=== PATIENT | male | born 1995 | race Caucasian/White ===

== ENCOUNTER 2017-07-31 10:27 | Emergency (ER) | payer BC ==
[~2017-07-31] VITALS: Ht 170.2 cm; Wt 65.5 kg
[2017-07-31 10:33] VITALS: TEMP 36.6; Ht 170.2 cm; Wt 65.5 kg
[2017-07-31 10:43] VITALS: O2SAT 99
[2017-07-31] MEDS ORDERED: METHYLPREDNISOLONE 125 MG VIAL IV STA (10:49)
[2017-07-31] MEDS ORDERED: ALBUTEROL 0.083% NEBU SOLN 3 ML VIAL INH STA (10:49)
[2017-07-31] MEDS ORDERED: VNTHFA/IN INH (10:55)
[2017-07-31] MEDS ORDERED: FLUT0.15 NAE (10:55)
[2017-07-31] MEDS ORDERED: FLUT1INH INH (10:55)
[2017-07-31 11:14] LABS: EOS % 10.5 %; EOS ABS # 0.42 K/uL (0-0.5); HEMATOCRIT 45.8 % (42-52); HEMOGLOBIN 16.2 g/dL (14.0-18.0); LYMPH ABS # 1.44 K/uL (1.2-3.4); MEAN CELL VOLUME 91.1 fL (80-100); MEAN CORPUSCULAR HEMOGLOBIN 32.2 pg (25-34); MEAN CORPUSCULAR HGB CONC 35.4 g/dl (32-36); MONO ABS # 0.36 K/uL (0.11-0.59); NEUT % 44.5 %; NEUT ABS # 1.78 K/uL (1.4-6.5); PLATELET COUNT 194 K/uL (130-400); RED CELL DISTRIBUTION WIDTH CV 11.9 % (11.5-14.5); RED CELL DISTRIBUTION WIDTH SD 39.9 fL (36.4-46.3)
[2017-07-31 11:29] LABS: CREATININE 1.22 mg/dl (0.60-1.40); POTASSIUM 3.8 mmol/L (3.5-5.1)
--- NOTE | 2017-07-31 11:53 | DIAGNOSTIC IMAGING REPORT ---
CHEST ONE VIEW PORTABLE CLINICAL HISTORY: Shortness of breath. COMPARISON STUDY: No previous studies for comparison. FINDINGS: Lung volumes are normal. No consolidation is identified. There is no pneumothorax or pleural effusion. Cardiomediastinal silhouette is normal. IMPRESSION: No acute cardiopulmonary findings. Electronically signed by: Elian Alfred M.D. 07/31/2017 11:52 AM Dictated Date/Time: 07/31/2017 11:52 AM
[2017-07-31] MEDS ORDERED: ALBUT/IPRATROP 3MG/0.5MG NEB 3 ML VIAL INH STA (13:00)
[2017-07-31] MEDS ORDERED: PRED50TA PO (13:09)
[2017-07-31] MEDS ORDERED: AZIT-57 PO (13:09)
[2017-07-31] MEDS ORDERED: AZITHROMYCIN 250 MG TAB PO STA (13:10)
[2017-07-31 13:32] VITALS: BP 109/72; PULSE 102; O2SAT 98
--- NOTE | 2017-07-31 13:58 | EMERGENCY ROOM VISIT NOTE ---
History Report prepared by Sudheer: Stefan Waterman Under the Supervision of: Dr. Saw Mcdowell D.O. First contact with patient: 10:38 Chief Complaint: RESPIRATORY PROBLEMS Stated Complaint: ASTHMA SEVERAL DAYS History of Present Illness The patient is a 22 year old male who presents to the Emergency Room with complaints of worsening respiratory difficulties for the past week. The patient states that he has a history of asthma, and he had a recent change in medications from volare to AirDuo. He states that since this change he has been having issues. The patient states that he has been taking 4 puffs of albuterol daily, and he has already taken two today, and he states that he does not have a nebulizer. The patient states that he has been having a cough that is occasionally productive, and he has an occasional runny nose. He additionally states that he is having some chest heaviness which is typical with his asthma exacerbations. Patient denies swelling of calves, recent trips, history of immobilization or recent surgeries, headache, change in vision, fevers, nausea, vomiting, diarrhea, pain with urination, and melena. The patient denies any oral steroid usage. Source of History: patient Onset: a week ago Position: other (global) Quality: other (respiratory difficulties) Timing: worsening Associated Symptoms: + cough Note: Associated symptoms: Chest heaviness. Review of Systems See HPI for pertinent positives & negatives. A total of 10 systems reviewed and were otherwise negative. Past Medical & Surgical Medical Problems: (1) Asthma Social History Smoking Status: Never Smoker Marital Status: single Housing Status: lives with roommate Occupation Status: [employer] student Current/Historical Medications Scheduled Azithromycin (Azithromycin), 250 MG PO DAILY Fluticasone Propionate (Nasal) (Flonase Allergy Relief), 1 SPRAY LISSY DAILY Fluticasone-Salmeterol (Airduo Respiclick 232/14 232-14 Mcg/Act), 1 PUFF INH AMPM Prednisone (Prednisone), 50 MG PO DAILY Scheduled PRN Albuterol Hfa (Ventolin Hfa), 2 PUFFS INH UD PRN for SOB/Wheezing Allergies Coded Allergies: Nut Tree (Unverified Allergy, Severe, ANAPHYLAXIS, 07/31/17) Peanut (Unverified Allergy, Severe, ANAPHYLAXIS, 07/31/17) Kiwi (Unverified Allergy, Unknown, UNKNOWN, 07/31/17) Latex1 -Allergic Contact Dermititis (Unverified Allergy, Unknown, UNKNOWN , 07/31/17) Soren (Unverified Allergy, Unknown, UNKNOWN, 07/31/17) Physical Exam Vital Signs Date Time Temp Pulse Resp B/P (MAP) Pulse Ox O2 Delivery O2 Flow Rate FiO2 07/31/17 13:32 102 20 109/72 98 Room Air 07/31/17 12:45 97 18 123/76 100 Room Air 07/31/17 11:43 118 18 118/68 100 Nebulizer 07/31/17 10:55 89 16 132/82 96 Room Air 07/31/17 10:45 91 07/31/17 10:43 99 Room Air 07/31/17 10:43 99 Room Air 07/31/17 10:33 36.6 88 24 99 Room Air Physical Exam GENERAL: Sitting up in bed, talking in full sentences, mild distress, non-toxic. EYE EXAM: normal conjunctiva. OROPHARYNX: no exudate, no erythema, lips, buccal mucosa, and tongue normal and mucous membranes are moist NECK: supple, no nuchal rigidity, no adenopathy, non-tender LUNGS: Diffuse expiratory wheezing bilaterally. Normal chest wall mechanics HEART: no murmurs, S1 normal and S2 normal ABDOMEN: abdomen soft, non-tender, normo-active bowel sounds, no masses, no rebound or guarding. BACK: Back is symmetrical on inspection and there is no deformity, no midline tenderness, no CVA tenderness. SKIN: no rashes and no bruising UPPER EXTREMITIES: upper extremities are grossly normal. LOWER EXTREMITIES: Calves are equal bilaterally. No pitting edema. NEURO EXAM: Normal sensorium, cranial nerves II-XII grossly intact, normal speech, no gross weakness of arms, no gross weakness of legs. Gross sensation intact. Medical Decision & Procedures ER Provider Diagnostic Interpretation: Radiology results as stated below per my review and the radiologist's interpretation: CHEST ONE VIEW PORTABLE CLINICAL HISTORY: Shortness of breath. COMPARISON STUDY: No previous studies for comparison. FINDINGS: Lung volumes are normal. No consolidation is identified. There is no pneumothorax or pleural effusion. Cardiomediastinal silhouette is normal. IMPRESSION: No acute cardiopulmonary findings. Electronically signed by: Elian Alfred M.D. 07/31/2017 11:52 AM Dictated Date/Time: 07/31/2017 11:52 AM Laboratory Results 07/31/17 11:00 Red Blood Count 5.03, Mean Corpuscular Volume 91.1, Mean Corpuscular Hemoglobin 32.2, Mean Corpuscular Hemoglobin Concent 35.4, Mean Platelet Volume 11.0, Neutrophils (%) (Auto) 44.5, Lymphocytes (%) (Auto) 36.0, Monocytes (%) (Auto) 9.0, Eosinophils (%) (Auto) 10.5, Basophils (%) (Auto) 0.0, Neutrophils # (Auto ) 1.78, Lymphocytes # (Auto) 1.44, Monocytes # (Auto) 0.36, Eosinophils # (Auto ) 0.42, Basophils # (Auto) 0.00 07/31/17 11:00 Test 07/31/17 11:00 White Blood Count 4.00 K/uL (4.8-10.8) Red Blood Count 5.03 M/uL (4.7-6.1) Hemoglobin 16.2 g/dL (14.0-18.0) Hematocrit 45.8 % (42-52) Mean Corpuscular Volume 91.1 fL (80-100) Mean Corpuscular Hemoglobin 32.2 pg (25-34) Mean Corpuscular Hemoglobin Concent 35.4 g/dl (32-36) Platelet Count 194 K/uL (130-400) Mean Platelet Volume 11.0 fL (7.4-10.4) Neutrophils (%) (Auto) 44.5 % Lymphocytes (%) (Auto) 36.0 % Monocytes (%) (Auto) 9.0 % Eosinophils (%) (Auto) 10.5 % Basophils (%) (Auto) 0.0 % Neutrophils # (Auto) 1.78 K/uL (1.4-6.5) Lymphocytes # (Auto) 1.44 K/uL (1.2-3.4) Monocytes # (Auto) 0.36 K/uL (0.11-0.59) Eosinophils # (Auto) 0.42 K/uL (0-0.5) Basophils # (Auto) 0.00 K/uL (0-0.2) RDW Standard Deviation 39.9 fL (36.4-46.3) RDW Coefficient of Variation 11.9 % (11.5-14.5) Immature Granulocyte % (Auto) 0.0 % Immature Granulocyte # (Auto) 0.00 K/uL (0.00-0.02) Anion Gap 8.0 mmol/L (3-11) Est Creatinine Clear Calc Drug Dose 88.7 ml/min Estimated GFR () 97.6 Estimated GFR (Non- 84.2 BUN/Creatinine Ratio 10.9 (10-20) Calcium Level 10.0 mg/dl (8.5-10.1) Laboratory results per my review. Medications Administered Medications (Trade) Dose Ordered Sig/Jass Route Start Time Stop Time Status Last Admin Dose Admin Albuterol Sulfate (Ventolin 0.083% 2.5MG/3ML Neb) 5 mg NOW STAT INH 07/31/17 10:49 07/31/17 10:52 DC 07/31/17 11:18 5 MG Methylprednisolone Sodium Succinate (Solu-Medrol IV) 125 mg NOW STAT IV 07/31/17 10:49 07/31/17 10:52 DC 07/31/17 11:03 125 MG Albuterol/ Ipratropium (Duoneb) 3 ml NOW STAT INH 07/31/17 13:00 07/31/17 13:01 DC 07/31/17 13:18 3 ML Azithromycin (Zithromax Tab) 500 mg NOW STAT PO 07/31/17 13:10 07/31/17 13:11 DC 07/31/17 13:32 500 MG ED Course ED COURSE: Vital signs were reviewed and showed normal vitals The patients medical record was reviewed The above diagnostic studies were performed and reviewed. ED treatments and interventions as stated above. 1039: The patient was evaluated in room B3. A complete history and physical examination was performed. 1049: Solu-Medrol 125mg IV, Albuterol Sulfate 5mg INH 1117: I reevaluated the patient, and he was dong well. 1209: Upon reevaluation, the patient is feeling better 1300: I reassessed the patient, and his lungs are significantly improved. I ordered DuoNeb 3ml INH 1310: Azithromycin 500mg PO 1339: Upon reevaluation, the patient is doing well.I discussed my findings with the patient and he understands and agrees with the treatment plan. Based on the patients age, coexisting illnesses, exam and lab findings the decision to treat as an outpatient was made. The patient remained stable while under my care. The patient appeared well at the time of discharge. Medical Decision Differential diagnoses includes but is not limited to pneumonia, bronchitis, COPD/Asthma exacerbation, pneumothorax, pulmonary embolism, congestive heart failure, acute coronary syndrome Patient is a 22-year-old male who presents to ER with past medical history of asthma for shortness of breath associated with wheezing. His asthma medications were recently switched by his PCP due to insurance issues. Patient has been using them as instructed. On exam he has diffuse expiratory wheezing bilaterally. He is slightly dyspneic. He was given multiple albuterol and one DuoNeb. Following this his air movement improved significantly along with his wheezing. He was also given steroids and azithromycin as he has a clear productive cough now. Chest x-ray was unremarkable. CBC and BMP were unremarkable. Patient was updated bedside. He felt significant better. I also stable. He was discharged follow-up with PCP/daily at bedtime as an outpatient tomorrow for possible nebulizer and additional follow-up. Discussed with Pt concerning signs and symptoms to watch out for. Pt was instructed to follow up with their PCP and discussed with the patient their option to return to the ED at anytime for persistent or worsening symptoms. The appropriate anticipatory guidance and out-patient management, including indications for return to the emergency department, were explained at length to the patient and understood. Medication Reconcilliation Current Medication List: was personally reviewed by me Blood Pressure Screening Patient's blood pressure: Normal blood pressure Impression Primary Impression: Asthma exacerbation Scribe Attestation The scribe's documentation has been prepared under my direction and personally reviewed by me in its entirety. I confirm that the note above accurately reflects all work, treatment, procedures, and medical decision making performed by me. Departure Information Dispostion Home / Self-Care Prescriptions Azithromycin (Azithromycin) 250 Mg Tab 250 MG PO DAILY for 4 Days Prov: Saw Mcdowell, DO 07/31/17 Prednisone (PREDNISONE) 50 Mg Tab 50 MG PO DAILY for 4 Days, TAB Prov: Saw Mcdowell, DO 07/31/17 Referrals No Doctor, Assigned (PCP) Forms HOME CARE DOCUMENTATION FORM, IMPORTANT VISIT INFORMATION, WORK / SCHOOL INSTRUCTIONS Patient Instructions Asthma - [facility], [facility] Additional Instructions Please follow up with your primary care doctor or if you are a student, [facility] with in the next 24 hours. Any worsening of your symptoms, please return to the ED immediately. This includes any fevers greater than 100.4, worsening pain, chest pain, shortness breath, persistent nausea, vomiting, unable to eat or drink, or any other concerning signs or symptoms from your standpoint. Please take steroids as prescribed. Please use all of your inhalers and follow-up with PCP tomorrow for possible nebulizer. Problem Qualifiers Primary Impression: Asthma exacerbation Asthma severity: unspecified severity Asthma persistence: unspecified Qualified Codes: J45.901 - Unspecified asthma with (acute) exacerbation
== END 2017-07-31 13:45 | disposition home or self-care (01) ==
LOC: C.EDB 10:30
DX: J45.901 Unspecified asthma with (acute) exacerbation (principal)